=== PATIENT | male | born 1980 | race Caucasian/White ===

== ENCOUNTER 2024-02-04 23:23 | Emergency (ER) | payer SELFPAY ==
[2024-02-04 23:28] VITALS: BP 139/58; RESP 18; TEMP 97.7; BMI 24.3
[2024-02-05 00:43] VITALS: PULSE 60
== END 2024-02-05 00:43 | disposition home or self-care (01) ==
LOC: JER 23:23
DX: S61.301A Unspecified open wound of left index finger with damage to nail, initial encounter (principal); S61.303A Unspecified open wound of left middle finger with damage to nail, initial encounter; W31.2XXA Contact with powered woodworking and forming machines, initial encounter
CPT/HCPCS: 99283-25